=== PATIENT | female | born 1955 ===

== ENCOUNTER 2018-07-17 08:52 | Emergency (ER) | payer MEDICARE ==
[2018-07-17 09:13] VITALS: RESP 18; TEMP 98.3
--- NOTE | 2018-07-17 09:43 | ED PDOC ---
Arrival/HPI <Konstantin Sprague - Last Filed: 07/17/18 10:08> - General Historian: Patient - History of Present Illness Narrative History of Present Illness (Text): 07/17/18 09:38 Patient is a 63 year old female with no significant past medical history presenting with chief complaint of anxiety. About three hours prior to arrival to ED patient felt an onset of anxiety, nausea, chills, weakness in the lower extremities. She states she has been feeling intermittently anxious for the past few days. She went to her PMD recently who gave her a medication for anxiety which did not help. Denies sick contacts or recent travel. Denies fevers, chest pain, shortness of breath, abdominal pain, vomiting, diarrhea, dysuria. Time/Duration: 1 week Symptom Onset: Sudden Symptom Course: Unchanged Severity Level: Moderate <Hemant Palomino - Last Filed: 07/17/18 12:30> - General Chief Complaint: Anxiety Time Seen by Provider: 07/17/18 09:13 Past Medical History - Provider Review Nursing Documentation Reviewed: Yes - Infectious Disease Hx of Infectious Diseases: None - Reproductive Menopause: Yes - Cardiac Hx Cardiac Disorders: Yes - Pulmonary Hx Respiratory Disorders: No - Psychiatric Hx Substance Use: No - Anesthesia Hx Anesthesia Reactions: No <Hemant Palomino - Last Filed: 07/17/18 12:30> Family/Social History - Physician Review Nursing Documentation Reviewed: Yes Family/Social History: No Known Family HX Smoking Status: Unknown If Ever Smoked Hx Alcohol Use: No Hx Substance Use: No <Hemant Palomino - Last Filed: 07/17/18 12:30> Allergies/Home Meds <Konstantin Sprague - Last Filed: 07/17/18 10:08> <Hemant Palomino - Last Filed: 07/17/18 12:30> Allergies/Adverse Reactions: Allergies No Known Allergies Allergy (Verified 07/17/18 09:34) Review of Systems - Review of Systems Constitutional: Normal Respiratory: Normal Cardiovascular: Normal Gastrointestinal: Nausea Psychiatric: Anxiety <Hemant Palomino - Last Filed: 07/17/18 12:30> Physical Exam Vital Signs Temp Pulse Resp BP Pulse Ox 07/17/18 09:12 98.3 F 68 18 124/58 L 100 <Konstantin Sprague - Last Filed: 07/17/18 10:08> Vital Signs Reviewed: Yes Vital Signs Temp Pulse Resp BP Pulse Ox 07/17/18 09:12 98.3 F 68 18 124/58 L 100 Temperature: Afebrile Blood Pressure: Normal Pulse: Regular Respiratory Rate: Normal Appearance: Positive for: Non-Toxic Pain Distress: None Mental Status: Positive for: Alert and Oriented X 3 - Systems Exam Head: Present: Atraumatic, Normocephalic Pupils: Present: PERRL Extroacular Muscles: Present: EOMI Conjunctiva: Present: Normal Mouth: Present: Moist Mucous Membranes Respiratory/Chest: Present: Clear to Auscultation, Good Air Exchange. No: Respiratory Distress, Accessory Muscle Use Cardiovascular: Present: Regular Rate and Rhythm, Normal S1, S2. No: Murmurs, Tachycardic Abdomen: Present: Normal Bowel Sounds. No: Tenderness, Distention Lower Extremity: Present: Normal Inspection. No: Edema Neurological: Present: GCS=15, CN II-XII Intact, Speech Normal, Motor Func Grossly Intact Skin: Present: Warm, Dry, Normal Color Psychiatric: Present: Alert, Oriented x 3 <Hemant Palomino - Last Filed: 07/17/18 12:30> Medical Decision Making - RAD Interpretation Radiology Orders: 07/17/18 10:03 HEAD W/O CONTRAST [CT] Stat - EKG Interpretation EKG Interpretation (Text): 07/17/18 10:08 ekg my read: nsr at 73 bpm, nml qrs, nml axis, no acute sttw abn Interpreted by ED Physician: Yes <Konstantin Sprague - Last Filed: 07/17/18 10:08> ED Course and Treatment: 07/17/18 09:46 Impression: 63 year old female with anxiety Plan: - CBC, CMP - EKG, troponin - TSH - CK - Orthostatics - CT head - Reassess and disposition Prior Visits: Notes and results from previous visits were reviewed. Progress Notes: 07/17/18 11:40 Patient reports improvement in symptoms. Walk test was performed which patient tolerated well without worsening of dizziness or any other symptoms. Patient hemodynamically stable and optimized for discharge to follow up with primary medical doctor. Patient advised to return to ED if symptoms persist or worsen. Patient in agreement with plan of management. <Hemant Palomino - Last Filed: 07/17/18 12:30> Disposition/Present on Arrival <Konstantin Sprague - Last Filed: 07/17/18 10:08> - Present on Arrival Any Indicators Present on Arrival: No History of DVT/PE: No History of Uncontrolled Diabetes: No Urinary Catheter: No History of Decub. Ulcer: No History Surgical Site Infection Following: None - Disposition Have Diagnosis and Disposition been Completed?: Yes Disposition Time: 12:07 <Hemant Palomino - Last Filed: 07/17/18 12:30> - Disposition Diagnosis: Anxiety, Paresthesia Disposition: HOME/ ROUTINE Patient Problems: Current Active Problems Problem Status Onset Anxiety Acute Paresthesia Acute Condition: STABLE Discharge Instructions (ExitCare): Anxiety, Adult (DC), Paresthesias (DC) Additional Instructions: Follow up with your primary medical doctor within one week Return to ED if symptoms return or worsen Referrals: Lele Bello APN, APN [Primary Care Provider] - Follow up with primary Forms: [employer] (Turkmen)
[2018-07-17 10:32] LABS: BASO # 0.04 K/mm3 (0.0-2.0); BASO % 0.5 % (0.0-3.0); EOS # 0.1 (0.0-0.7); EOS % 0.6 % (1.5-5.0); HEMOGLOBIN 13.3 g/dL (12.0-16.0); LYMPH # 1.7 (1.2-3.4); LYMPH % 21.2 % (22.0-35.0); MEAN CELL VOLUME 90.9 fl (80.0-105.0); MEAN CORPUSCULAR HEMOGLOBIN 30.2 pg (25.0-35.0); MEAN CORPUSCULAR HGB CONC 33.3 g/dl (31.0-37.0); MONO # 0.5 (0.1-0.6); MONO % 6.4 % (1.0-6.0); RBC 4.4 10^6/uL (3.5-6.1); RED CELL DISTRIBUTION WIDTH 12.2 % (11.5-14.5); WHITE BLOOD COUNT 7.9 10^3/uL (4.5-11.0)
[2018-07-17 10:39] LABS: ALB/GLOB RATIO 1.2 (1.1-1.8); ALBUMIN 4.2 g/dL (3.0-4.8); ALT/SGPT 38 U/L (7-56); AST/SGOT 40 U/L (14-36); BLOOD UREA NITROGEN 17 mg/dL (7-21); CALCIUM 9.7 mg/dL (8.4-10.5); GFR NON-AFRICAN AMERICAN > 60
[2018-07-17 10:50] LABS: TROPONIN I < 0.01 ng/mL
--- NOTE | 2018-07-17 10:53 | CT ---
Date of service: 07/17/2018 PROCEDURE: CT HEAD WITHOUT CONTRAST. HISTORY: numbness COMPARISON: None available. TECHNIQUE: Axial computed tomography images were obtained through the head/brain without intravenous contrast. Radiation dose: Total exam DLP = 763.2 mGy-cm. This CT exam was performed using one or more of the following dose reduction techniques: Automated exposure control, adjustment of the mA and/or kV according to patient size, and/or use of iterative reconstruction technique. FINDINGS: HEMORRHAGE: No intracranial hemorrhage. BRAIN: No mass effect or edema. No atrophy or chronic microvascular ischemic changes. VENTRICLES: Unremarkable. No hydrocephalus. CALVARIUM: Unremarkable. PARANASAL SINUSES: Unremarkable as visualized. No significant inflammatory changes. MASTOID AIR CELLS: Unremarkable as visualized. No inflammatory changes. OTHER FINDINGS: None. IMPRESSION: Normal CT of the Head.
[2018-07-17 12:58] VITALS: BP 110/66; PULSE 72; O2SAT 99
--- NOTE | 2018-07-17 17:51 | CARD ---
APPROVED REPORT Date of service: 07/17/2018 EKG Measurement Heart [id number] <Conclusion> Normal sinus rhythm Normal ECG
== END 2018-07-17 12:12 | disposition home or self-care (01) ==
LOC: ED 08:52
DX: F41.9 Anxiety disorder, unspecified (principal); R20.2 Paresthesia of skin